=== PATIENT | male | born 1955 | race Caucasian/White ===

== ENCOUNTER → 2016-08-28 | Day surgery (SDC) | payer OTHER ==
[~2016-08-28] VITALS: Ht 180.3 cm; Wt 99.0 kg
[~2016-08-28] MED LIST: APIX5TAB PO; ASPI1TAB69 PO; ATEN100T PO; BUPIVACAINE/EPINEPHRINE 0.5% PF 30 ML VIAL ONE; CHLORHEXIDINE GLUCONATE 0.12% 30 ML CUP ONE; CHOL50006 PO; DEXAMETHASONE SOD PHOS 20 MG/5 ML VIAL IV SCH; DEXAMETHASONE SOD PHOS 4 MG/ML VIAL ONE; DIOV80TA4 PO; DO NOT ADM ANY ANTICOAGULANT DRUGS XX PRN; DOCUSATE SODIUM 100 MG CAP PO SCH; FAMOTIDINE 20 MG/2 ML VIAL ONE; FURO1TAB60 PO; HYDROmorphone HCL PF 1 MG/ML VIAL IV PRN; INSULIN HUMAN REGULAR 1,000 UNITS/10 ML VIAL SQ PRN; ISOS30TA3 PO; LACTATED RINGER'S 1000 ML IV SCH; LIBRIUM PO; LIDOCAINE 1%/EPINEPHrine 1:100,000 SOLN 20 ML VIAL ONE; LIDOCAINE 2%/EPINEPHrine 1:100,000 30ML MDV ONE; LIPI40TA PO; METOPROLOL TARTRATE 25 MG TAB PO PRN; MIDAZOLAM HCL 2 MG/2 ML VIAL ONE; MULT1TAB84 PO; NEOSTIGMINE 3 MG/3 ML SYR IV ONE; ONDANSETRON HCL 4 MG/2 ML VIAL IV PRN; ONDANSETRON HCL 4 MG/2 ML VIAL ONE; PROPOFOL 200 MG/20 ML AMP IV ONE; PROT40TA PO; PROZ40CA PO; Post-op Orders (for Pharmacy) MISC XX ONE; SODIUM CHLOR 0.9% 1000 ML INJ 1,000 ML IV SCH; SODIUM CHLORID 0.9% 500 ML IV SCH; SODIUM CHLORIDE 0.9% FLUSH 5 ML FLUSH IVF PRN; SODIUM CHLORIDE 0.9% FLUSH 5 ML FLUSH IVF SCH; SODIUM CHLORIDE 0.9% INJ 100 ML ONE; SPIRCAP INH; SYMB160A INH; VITATAB11 PO; ZOLPIDEM TARTRATE 5 MG TAB PO PRN; ceFAZolin 1,000 MG/NS 100 ML IV SCH; ceFAZolin INJ 1,000 MG VIAL ONE; diphenhydrAMINE HCL 25 MG CAP PO PRN; fentaNYL CITRATE 250 MCG/5 ML AMP ONE; oxyCODONE/ACETAMINOPHEN 5 MG/325 MG TAB PO PRN
--- NOTE | 2016-08-28 07:13 | HHI.HP ---
History of Present Illness Service [facility]MS Primary Care Physician Unknown Admission Diagnosis Left angle of the mandible fracture Diagnoses: History of Present Illness This is a 60 year old male who presented to [facility] office upon referral from his PCP for evaluation of his jaw. Pt states that on 08/25/16 he had had too much to drink and fell on the left side of his face. Pt states he reported to a hospital in [place] and diagnosed with a left mandibular fracture. The patient was on Eliquis was subsequently discharged to follow up with his PCP and a oral surgeon for repair of his jaw. Pt was accompanied by his with in stable condition and no acute distress. Pt complained of left jaw pain. Pt denies any nausea, vomiting or fever. Vital signs stable. Review of Systems Constitutional: DENIES: Fever, Chills, Change in appetite Endocrine: DENIES: Heat/cold intolerance Eyes: DENIES: Blurred vision, Diplopia, Eye inflammation, Eye pain, Vision loss , Photosensitivity, Double Vision Ears, nose, mouth, throat: DENIES: Tinnitus, Hearing loss, Vertigo, Nasal discharge, Oral lesions, Throat pain, Hoarseness, Ear Pain, Running Nose, Epistaxis, Sinus Pain, Toothache, Odynophagia Respiratory: COMPLAINS OF: Cough, DENIES: Apneas, Snoring, Wheezing, Hemoptysis, Sputum production, Shortness of breath Cardiovascular: COMPLAINS OF: Dyspnea on Exertion, DENIES: Chest pain, Palpitations, Syncope, PND, Lower Extremity Edema, Orthopnea, Claudication Gastrointestinal: DENIES: Abdominal pain, Black stools, Bloody stools, Constipation, Diarrhea, Nausea, Vomiting, Difficulty Swallowing, Anorexia Genitourinary: DENIES: Sexual dysfunction, Urinary frequency, Urinary incontinence, Urgency, Hematuria, Dysuria, Nocturia, Penile Discharge, Testicular Pain, Testicular Swelling Musculoskeletal: COMPLAINS OF: Joint pain, Muscle aches, Stiffness, Back pain Integumentary: DENIES: Abnormal pigmentation, Nail changes, Pruritus, Rash Hematologic/lymphatic: DENIES: Bruising, Lymphadenopathy Immunologic/allergic: DENIES: Eczema, Urticaria Neurologic: COMPLAINS OF: Abnormal gait Psychiatric: DENIES: Anxiety, Confusion, Mood changes, Depression, Hallucinations, Agitation, Suicidal Ideation, Homicidal Ideation, Delusions Except as stated in HPI: all other systems reviewed are Neg Past Family Social History Past Medical History COPD HTN CVA 2010 A-FIB Past Surgical History CABG 2014 BACK SURGERY KNEE SURGERY Reported Medications Cindyganeshjuan Mellissa Atenolol Multivitamins Lipitor Spiriva Symbicort Lasix Librium Family History Father - Hx of prostate cancer, CVD Mom - early onset dementia Social History Lives with , retired, disabled ETOH daily +tob -IVDA Physical Exam Vital Signs BP 115/74 Pulse 77 O2 sat 100% Physical Exam GENERAL: This is a well-nourished, well-developed patient, in no apparent distress. SKIN: No rashes, ecchymoses or lesions. Cool and dry. HEAD: Atraumatic. Normocephalic. No temporal or scalp tenderness. EYES: Pupils equal round and reactive. Extraocular motions intact. No scleral icterus. No injection or drainage. Mild infraorbital ecchymosis ENT: Nose without bleeding, purulent drainage or septal hematoma. Throat without erythema, tonsillar hypertrophy or exudate. Uvula midline. Airway patent. MAXILLOFACIAL: Repaired 0.5cm laceration of the lower third of the face. BON 35mm. Completely edentulous. Buccal ecchymosis of the lower left vestibule. FOM not raised. Airway is patent. NECK: Trachea midline. No JVD or lymphadenopathy. Supple, nontender, no meningeal signs. CARDIOVASCULAR: Regular rate and rhythm without murmurs, gallops, or rubs. RESPIRATORY: Clear to auscultation. Breath sounds equal bilaterally. No wheezes , rales, or rhonchi. GASTROINTESTINAL: Abdomen soft, non-tender, nondistended. No hepato-splenomegaly , or palpable masses. No guarding. MUSCULOSKELETAL: Extremities without clubbing, cyanosis, or edema. No joint tenderness, effusion, or edema noted. No calf tenderness. Negative Homans sign bilaterally. NEUROLOGICAL: Awake and alert. Cranial nerves II through XII intact. Motor and sensory grossly within normal limits. Five out of 5 muscle strength in all muscle groups. Normal speech. Laboratory As 08/25/16 WBC 10.3 RBC 4.6 Hemoglobin 14.9 Hematocrit 44.0 Platelet count 158 PT 14.8 INR 1.18 Alcohol 270 Glucose 105 BUN 4 Creatine 0.6 NA 128 K 4.1 Antibody screen neg ABO group A Rh type positive Imaging 08/25/16 CT head - no acute intracranial abnormality CT fracture - no acute fracture seen CT soft tissue neck - acute traumatic fracture of left mandible. Assessment and Plan Assessment and Plan A : 60 y/o male s/p fall sustaining a left angle of the mandible fracture. P: NPO for 8 hours prior to surgery on 08/29/2015. Pt is planned for open reduction and internal fixation of left angle of left angle of the mandible fracture. Informed consent discussed. All risk benefits and alternatives discussed prior to procedure. All questions answered pre-op. 1 gram Ancef IV 1 hour prior to procedure in holding 10 mg of Decadron prior to the start of surgery. Post-op scripts given to patient in Office. Discussed Condition With patient and Discharge Planning Same day surgery. Gal Rebolledo DDS Aug 28, 2016 07:13
[2016-08-28 12:07] VITALS: BP 117/77; PULSE 72; RESP 18; TEMP 98.4; O2SAT 98
--- NOTE | 2016-08-28 12:32 | HP.UPD ---
H&P Update Date: Aug 28, 2016 Note The Pre-Admit History and Physical Examination regarding the above named patient was reviewed (including, but not limited to, vital signs, medications, allergies, co-morbid conditions), and upon re-examination it is noted that: Indicated with "X" [X] - the patient's condition has not significantly changed since the last examination. [] - the patient's condition has changed since the last examination. Changes: Gal Rebolledo DDS Aug 28, 2016 12:32
--- NOTE | 2016-08-28 14:01 | HHI.PR ---
Immediate Post Op Note Procedure Date: Aug 28, 2016 Pre Op Diagnosis: left angle of the mandible fracture Post Op Diagnosis: same as pre-op Surgeon: Gal Rebolledo Heat Treating Bluer(s): Martinez Avila RADIO OPERATOR Procedure: Open reduction and internal fixation of left angle of the mandible fracture Complications: None Specimen(s) removed: None Estimated blood loss: Minimal Anesthesia: General Drains: None IVF Patient to: SDS Patient Condition: Good Implant/Devices: SEE IMPLANT LOG (if applicable) Date/Time of Procedure: SEE SURGICAL CARE RECORD Gal Rebolledo DDS Aug 28, 2016 14:01
[2016-08-28 16:06] VITALS: BP 112/77; PULSE 71; RESP 18; TEMP 98.4; O2SAT 96
--- NOTE | 2016-08-28 18:58 | EKG ---
Date Performed: 08/28/2016 Time Performed: 11:34:22 PTAGE: 60 years EKG: ATRIAL FIBRILLATION POSSIBLE LEFT VENTRICULAR HYPERTROPHY ABNORMAL ECG NO PREVIOUS TRACING DOCTOR: Blaze Jiang Interpretating Date/Time 08/28/2016 18:56:32
--- NOTE | 2016-08-29 07:26 | MP ---
cc: SUMAN REBOLLEDO DDS DATE OF 1955 DATE OF SURGERY 08/28/2016 PREOPERATIVE DIAGNOSIS Left angle of the mandible fracture. PROCEDURE Open reduction, internal fixation of left angle of the mandible fracture. POSTOPERATIVE DIAGNOSIS Open reduction, internal fixation of left angle of the mandible fracture. SURGEON Dr. Suman Rebolledo ANESTHESIA General anesthesia. ESTIMATED BLOOD LOSS Minimal. COMPLICATIONS None. INDICATIONS Mr. Chaudhary is a 60-year-old male who on 08/25/2016 fell after consuming alcohol. The patient presented to the [facility] where a soft tissue neck CT was performed and it was found that the patient had a left angle of the mandible fracture. However, because the patient was taking Eliquis at the time, he was discharged to follow up with his primary care physician who referred him to an oral surgeon. The patient was seen and evaluated by me, Dr. Suman Rebolledo, and it was concluded that the patient had a left angle of the mandible fracture that needed to be repaired in the operating room. Informed consent was discussed with the patient and all risks including but not limited to pain, bleeding, swelling, infection, damage to adjacent structures, malocclusion, malunion, nonunion, damage to nerves including trigeminal, facial nerve, lingual nerve and the need for additional surgery, osteomyelitis, pathological fracture and benefits, alternatives and complications of treatment and non-treatment were all discussed in depth with the patient. The patient agreed to all procedures and all questions were answered preoperatively. Therefore the patient was taken to the operating room. PROCEDURE On 08/28/2016 the patient was brought to the operating room and placed in a supine position on the operating room table. All anesthesia pads and monitors were attached to the patient and the patient was subsequently induced into general anesthesia via nasoendotracheal intubation and IV. The patient was then prepped and draped in the usual oral and maxillofacial surgical fashion. The patient was anesthetized on the lower left side via nerve block. The patient was given 5 cc of 2% lidocaine with 1:100 epinephrine. Using electrocautery, a surgical incision was made in the retromolar pad and buccal vestibule on the lower left hand side, and a full-thickness mucoperiosteal flap was developed exposing the lower left angle of the mandible fracture which was noted to be displaced. Using a four-hole Yani Niko 1.5 profile plate adapted using the Champy technique, the fracture was reduced and the plate was secured with four 7-mm screws. Once the fracture was noted to be reduced, the surgical site was irrigated and the soft tissue was closed using 3-0 chromic gut sutures. The oropharynx was suctioned dry and the surgery was terminated. The patient was transferred to the PACU in stable condition and was discharged to home in stable condition. The patient will follow up with Dr. Rebolledo at the [facility] office in one week for reevaluation and an x-ray. NITHIN Friedman/LEANDRO /2:09 PM /7:17 AM
== END | disposition home or self-care (01) ==
LOC: HSDC 10:41
PROVIDERS: ATTEND Dentist General Practice
DX: S02.609A Fracture of mandible, unspecified, initial encounter for closed fracture (principal); I48.91 Unspecified atrial fibrillation; I10 Essential (primary) hypertension; J44.9 Chronic obstructive pulmonary disease, unspecified; Z79.01 Long term (current) use of anticoagulants; Z86.73 Personal history of transient ischemic attack (TIA), and cerebral infarction without residual deficits; Z95.1 Presence of aortocoronary bypass graft; W19.XXXA Unspecified fall, initial encounter
CPT/HCPCS: 00190; 21461; 93005; C1713; J0690; J1100; J2250; J2405; J2710; J3010; J7120